=== PATIENT | female | born 1935 | race Caucasian/White ===

== ENCOUNTER 2020-03-24 08:42 | Day surgery (SDC) | payer MEDICARE, SELFPAY ==
[2020-03-24] VITALS (12 sets, daily range): BP systolic 118–187; BP diastolic 52–92; PULSE 67–78; RESP 16; TEMP 36.7; O2SAT 92–100; BMI 39.1
[2020-03-24 09:25] LABS: Basophils # 0.1 K/mm3 (0-0.2); Basophils % 0.8 % (0.1-2.0); Eosinophils # 0.3 K/mm3 (0.0-0.4); Eosinophils % 3.2 % (0.1-12.0); Hematocrit 33.8 % (37.0-47.0); Hemoglobin 10.3 g/dL (12.2-16.2); Lymphocytes # 1.6 K/mm3 (0.7-4.5); Lymphocytes % 20.2 % (10-50); Mean Corpuscular HGB Conc 30.5 g/dL (31.8-35.4); Mean Corpuscular Hemoglobin 25.9 pg (27.0-31.2); Monocytes # 0.4 K/mm3 (0.1-1.0); Monocytes % 4.8 % (1.7-9.3); Neutrophils # 5.7 K/mm3 (1.8-7.8); Platelet Count 234 K/mm3 (142-424); Red Blood Count 3.97 M/mm3 (4.20-5.40); Red Cell Distribution Width 15.8 % (11.5-17.5)
[2020-03-24 09:29] LABS: Chloride 103 mmol/L (98-107); Potassium 3.8 mmoL/L (3.5-5.1); Sodium 141 mmol/L (136-145)
[2020-03-24 09:32] LABS: Anion Gap 12.8 mEq/L (5-15); Blood Urea Nitrogen 16 mg/dl (7-17); Calcium 9.4 mg/dl (8.4-10.2); Carbon Dioxide 29 mmol/L (22.0-30.0); Creatinine Clearance Estimated 66 mL/min (50-200); Estimated Glomerular Filt Rate 118 ml/min (>60); GFR (African American) 143 ML/MIN (>60); Glucose 170 mg/dl (74-100)
[2020-03-24 09:51] LABS: Coronavirus 19 IgG Antibody Negative (Negative); Coronavirus 19 IgM Antibody Negative (Negative)
--- NOTE | 2020-03-24 11:30 | IR_ITS ---
APPROVED REPORT Patient Location: [facility] Representative: LEXX Escobar RT (R) PROCEDURES Right heart catheterization Selective coronary angiogram INDICATION High risk abnormal Myoview, Angina pectoris, Pulmonary hypertension, Dyspnea Informed consent was obtained prior to the procedure. COMPLICATIONS NONE Estimated Blood Loss: LESS THAN 10 MLS TECHNIQUE One percent lidocaine was used to anesthetize the right anterior aspect of the right wrist. The right radial artery was accessed via the Seldinger technique and a 6 Indian hydrophilic sheath was placed in the right radial artery. Following this one percent lidocaine was used to anesthetize the right anterior aspect of the right neck. The right internal jugular vein was accessed via the Seldinger technique and a 7 Indian sheath was placed in the right internal jugular vein. Following this an arterial cocktail was administered using 5000U heparin, 2.5 mg verapamil, 1mg Lidocaine and 800mcg nitroglycerin into the right radial sheath. A trap catheter was used to perform left heart catheterization left ventriculogram and selective coronary angiography while a [place] catheter was used to perform right heart catheterization. Saturations were obtained in the pulmonary artery and right atrium. At the end of the procedure the arterial sheath was removed good hemostasis was achieved using Traclet band. Patient was transferred to the postop holding area in stable condition for venous sheath removal. ANGIOGRAPHIC RESULTS The left main artery Normal The left anterior descending artery Has proximal calcified 20 and 30% stenoses with moderately calcified mid segment which still only has 30% intraluminal stenoses. The distal LAD is atretic subtotally occluded and poorly provides the apex. The circumflex artery A large ramus intermedius originates off the left main artery and has a proximal 80% stenosis and then subtotally occluded shortly thereafter. The vessel was extensively calcified and the subtotal occlusion area small caliber and size and subtotally occluded the circumflex artery gives rise to a solitary obtuse marginal artery and has mid vessel 30 to 40% stenosis The right coronary artery Is a large dominant vessel with mild [id number] atheromatous plaque. 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 Medical management for coronary disease 2. Recommend renal duplex renal ultrasound 3. I suspect a large portion of patient's symptoms stem from severe hypertensive heart disease as evidenced by her systolic blood pressure in excess of 210 mmHg. I would aggressively treat her hypertension/hypertensive heart disease which will almost certainly improve patient's dyspnea 4. Medical management for coronary disease with aggressive risk factor modification Electronically signed by : Chandu Child
[2020-03-24 14:47] LABS: CATHL Arterial O2 SAT 60.8 % (90-100); CATHL Venous O2 SAT 61 % (75-80)
== END 2020-03-24 15:57 | disposition home or self-care (01) ==
PROVIDERS: PCP Family Medicine; Visit Provider Internal Medicine
DX: I11.0 Hypertensive heart disease with heart failure (principal); E11.69 Type 2 diabetes mellitus with other specified complication; I27.20 Pulmonary hypertension, unspecified; I25.84 Coronary atherosclerosis due to calcified coronary lesion; E78.5 Hyperlipidemia, unspecified; I42.9 Cardiomyopathy, unspecified; I44.4 Left anterior fascicular block; I45.10 Unspecified right bundle-branch block; I50.9 Heart failure, unspecified; K21.9 Gastro-esophageal reflux disease without esophagitis; R06.00 Dyspnea, unspecified; R93.1 Abnormal findings on diagnostic imaging of heart and coronary circulation; R94.31 Abnormal electrocardiogram [ECG] [EKG]; Z79.4 Long term (current) use of insulin; Z79.82 Long term (current) use of aspirin; I25.10 Atherosclerotic heart disease of native coronary artery without angina pectoris; Z95.5 Presence of coronary angioplasty implant and graft; E11.9 Type 2 diabetes mellitus without complications
CPT/HCPCS: 80048; 82810; 85025; 86328; 93451; 99152; 99153; C1725; C1769; C1894; J1644; Q9967

== ENCOUNTER → 2020-04-06 08:52 | Outpatient (CLI) | payer MEDICARE, SELFPAY ==
--- NOTE | 2020-04-06 08:53 | CA_ITS ---
APPROVED REPORT Glacing Machine Tender: Josephine Liang RVT Study Quality: Adequate Indications: HTN,HX HEMATURIA Risk Factors Hypertension Obesity Diabetes Renal Artery Doppler Proximal (R) 71.0/ cm/sec Mid (R) 72.7/ cm/sec Distal (R) 60.4/ cm/sec Renal Aorta Ratio (R) 1.20 Segmental A. (R) 23.5/6.8 cm/sec RI: 0.71 Segmental A. Sup (R) 23.5/6.8 cm/sec Segmental A. Mid (R) 24.5/4.9 cm/sec Segmental A. Inf (R) 21.0/4.9 cm/sec Origin (L) 35.7/ cm/sec Proximal (L) 47.3/ cm/sec Mid (L) 66.2/ cm/sec Distal (L) 56.7/ cm/sec Renal Aorta Ratio (L) 1.09 Segmental A. (L) 55.8/7.6 cm/sec RI: 0.86 Segmental A. Sup (L) 38.2/7.6 cm/sec Segmental A. Mid (L) 55.8/7.6 cm/sec Segmental A. Inf (L) 29.1/7.6 cm/sec Renal Measurements Kidney Size (R) 10.9x7.5 cm Cortical Thickness (R) 1.3 cm Kidney Size (L) 10.5x8.2 cm Cortical Thickness (L) 1.6 cm Findings Study suggests no evidence of stenosis of the bilateral renal arteries. Conclusion Study suggests no evidence of stenosis of the bilateral renal arteries. Electronically signed by : Bryce Gomes MD 04/06/2020 17:07:16
== END ==
PROVIDERS: PCP Family Medicine; Visit Provider Urology
DX: I25.10 Atherosclerotic heart disease of native coronary artery without angina pectoris; R06.00 Dyspnea, unspecified; E11.69 Type 2 diabetes mellitus with other specified complication; E78.5 Hyperlipidemia, unspecified; K21.9 Gastro-esophageal reflux disease without esophagitis; Z79.4 Long term (current) use of insulin; I10 Essential (primary) hypertension
CPT/HCPCS: 93976